=== PATIENT | female | born 1980 | race Caucasian/White ===

== ENCOUNTER 2025-06-10 09:44 | Outpatient (CLI) | payer MEDICAID, SELFPAY ==
--- NOTE | 2025-06-10 09:49 | MM_ITS ---
PROCEDURE INFORMATION: Exam: US Right Breast, Complete MG Bilateral Diagnostic Breast Tomosynthesis Exam date and time: 06/10/2025 10:14 AM Age: 45 years old Clinical indication: Right breast palpable lump; Mass, lump, or swelling; Additional info: Lump in breast TECHNIQUE: Imaging protocol: Complete ultrasound of all four quadrants of the right breast and the retroareolar regions, including ultrasound of the axilla when performed. Bilateral Diagnostic tomosynthesis and 2D mammography including computer-aided detection (CAD) when performed. Unilateral or bilateral exam. COMPARISON: 04/20/2015, 05/19/2015, 08/13/2019, 10/09/2019, 11/05/2019, 07/08/2024 FINDINGS: MAMMOGRAPHY: Breast composition: There are scattered areas of fibroglandular density. Breast mammogram findings: Stable benign-appearing subcentimeter nodules are present in the bilateral breasts when compared with examinations dating back to 08/21/2019. No new mass, architectural distortion, or suspicious cluster of calcifications has developed to suggest malignancy. No axillary adenopathy. ULTRASOUND: Breast ultrasound findings: Right: Targeted ultrasound of the right palpable retroareolar lump demonstrates a parallel circumscribed septated complicated cyst which measures 1.6 x 0.9 x 0.8 cm. This measured 1.6 x 0.8 x 1.1 cm on 10/09/2019. This measured 1.2 x 0.9 x 0.8 cm on 05/19/2015 Mostly circumscribed parallel hypoechoic cystic masses, morphologically similar to 1 another are present as follows: 0.7 x 0.3 x 0.5 cm right 7 o'clock 2 cm from the nipple 0.7 x 0.3 x 0.5 cm right 9 o'clock 5 cm from the nipple 0.6 x 0.6 x 0.3 cm right 10 o'clock 6 cm from the nipple 0.2 x 1.0 x 1.1 cm right 10 o'clock 5 cm from the nipple 0.8 x 0.9 x 0.6 cm right 10 o'clock 5 cm from the nipple No axillary adenopathy IMPRESSION: Stable sonographic appearance of a 9 o'clock periareolar palpable right breast cystic mass dating back to at least 2019 Numerous additional morphologically similar appearing complicated cystic masses throughout the breast as described above without dominant or morphologically suspicious/unique mass No mammographic or sonographic evidence of malignancy. Recommend annual screening mammography unless otherwise clinically indicated. ASSESSMENT: BI-RADS category 2: Benign
--- OUTSIDE RECORDS SUMMARY | 2025-06-10 09:57 | XMS_ITS | Clinical Summary ---
Author Organization Healthcare Address [address] [place] [address] Care Team Providers Care Welfare Supervisor Name Role Phone Unavailable Primary Care Provider Unavailabl e Social History Tobacco Use Types Packs/Day Years Used Date Smoking Tobacco: Never Assessed Comments Unknown Sex and Gender Information Value Date Recorded Sex Assigned at Not on file Legal Sex Female 9:39 AM EDT Gender Identity Not on file Sexual Orientation Not on file Plan of Treatment Not on file Insurance [employer]
--- OUTSIDE RECORDS SUMMARY | 2025-06-10 09:57 | XMS_ITS | Encounter Summary ---
Author Organization Healthcare Address [address] [place] [address] Care Team Providers Care [place] Tier Name Role Phone Unavailable Primary Care Provider Unavailabl e Encounter Details Date Type Department Care Team (Late st Contact Info) Description 07/19/2024 Lab Requisition [facility] Oral Pathology [address] [place] [id number] Dyuen Nielson, DMD [address] [place] [address] [phone] Other lesions of oral mucosa Social History Tobacco Use Types Packs/Day Years Used Date Smoking Tobacco: Never Assessed Comments Unknown Sex and Gender Information Value Date Recorded Sex Assigned at Not on file Legal Sex Female 9:39 AM EDT Gender Identity Not on file Sexual Orientation Not on file documented as of this encounter Plan of Treatment Not on file documented as of this encounter Procedures Procedure Name Priority Date/Time Associated Diagnosis Comments ACCESSION OF TISSUE, GROSS AND MICROSCOPIC EXAMINATION, PREPARATION AND TRANSMISSION OF WRITTEN REPORT Routine 07/17/2024 documented in this encounter Results * Oral Pathology Exam (07/17/2024) Gross Description A. Right Buccal Mucosa, The gross examination on July 19 reveals one irregular piece of dee and yellow soft tissue measuring 0.7x0.4x0.3 cm. The entire specimen was submitted for microscopic examination. A request for this from the treating clinician accompanied the specimen. The clinical diagnosis is Melanotic Macule versus Melanoacanthoma versus Nevus versus Melanoma. 07/22/2024 9:04 AM [facility] OR[facility] Microscopic Description Microscopic examination reveals non-keratinized stratified squamous epithelium with underlying fibrous connective tissue. An increase in melanin is noted in the basal and parabasal layers of the epithelium. The connective tissue contains superficial scattered melanin pigmentation, melanophages, and scattered chronic inflammatory cells, but is otherwise unremarkable. 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 07/22/2024 9:04 AM EDT [facility] ORAL PATHOLOGY Tissue Buccal mucosa / Unknown 07/17/2024 07/19/2024 9:39 AM EDT us Duyen Nielson DMD LAB PATHOLOGY ORDERABLES Final Result [facility] ORAL PATHOLOGY [address] [facility] [place] [address] documented in this encounter Visit Diagnoses Diagnosis Other lesions of oral mucosa documented in this encounter
== END 2025-06-10 23:59 | disposition home or self-care (01) ==
LOC: RAD 09:45
PROVIDERS: PCP Nurse Practitioner; Visit Provider Nurse Practitioner
DX: R92.321 Mammographic fibroglandular density, right breast; N60.11 Diffuse cystic mastopathy of right breast
CPT/HCPCS: 76641; 77062; 77066; G0279